=== PATIENT | male | born 1990 | race Caucasian/White ===

== ENCOUNTER 2025-03-17 16:04 | Emergency (ER) | payer MEDICAID ==
[~2025-03-17] VITALS: Ht 180.3 cm; Wt 77.0 kg
[~2025-03-17 16:04] MED LIST: GABAPENTIN100 MG PO
--- OUTSIDE RECORDS SUMMARY | 2025-03-17 16:11 | XMS ---
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 Nathalie has no Care Guidelines for this patient. Benjamin VISIT COUNT (12 MO.) 3 [facility] TOTAL 3 NOTE: Visits indicate total known visits. ED/UCC VISIT TRACKING (12 MO.) 03/17/2025 16:04 [facility] [place] TYPE: Emergency COMPLAINT: - RT ARM PAIN 12/25/2024 18:15 [facility] [place] TYPE: Emergency COMPLAINT: - EXTREMITY PAIN DIAGNOSES: - Allergy status to narcotic agent - Pain in arm, unspecified - Pain in left arm - Radiculopathy, cervical region 12/25/2024 17:08 [facility] [place] TYPE: Emergency COMPLAINT: - PAIN/WEAKNESS IN BOTH ARMS INPATIENT VISIT TRACKING (12 MO.) No inpatient visits to display in this time frame [email or web address]
[2025-03-17] MEDS ORDERED: NAPROSYN500 MG PO (17:02)
[2025-03-17 17:15] VITALS: BP 139/80
== END 2025-03-17 17:15 | disposition home or self-care (01) ==
LOC: ED 16:04
DX: M79.601 Pain in right arm (principal); Z88.5 Allergy status to narcotic agent; Z79.899 Other long term (current) drug therapy
CPT/HCPCS: 99283

== ENCOUNTER 2025-05-22 00:30 | Emergency (ER) | payer OTHER ==
[~2025-05-22] VITALS: Ht 180.3 cm; Wt 74.5 kg
[~2025-05-22 00:30] MED LIST changes: +NAPROSYN500 MG PO
--- OUTSIDE RECORDS SUMMARY | 2025-05-22 00:37 | XMS ---
PreManage Notification: CARLOS ARAUZ Security Sr. Manager Marketing Events No recent Security Events currently on file CRITERIA MET - Group Notification CARE PROVIDERS There are no care providers on record at this time. Nathalie has no Care Guidelines for this patient. Benjamin VISIT COUNT (12 MO.) 4 HANS Singh TOTAL 4 NOTE: Visits indicate total known visits. ED/C VISIT TRACKING (12 MO.) 05/22/2025 00:30 [facility] [place] TYPE: Emergency COMPLAINT: - SKIN PROBLEM 03/17/2025 16:04 [facility] [place] TYPE: Emergency COMPLAINT: - RT ARM PAIN DIAGNOSES: - Allergy status to narcotic agent - Other longterm (current) drug therapy - Pain in right arm 12/25/2024 18:15 [facility] [place] TYPE: Emergency COMPLAINT: - EXTREMITY PAIN DIAGNOSES: - Allergy status to narcotic agent - Pain in arm, unspecified - Pain in left arm - Radiculopathy, cervical region 12/25/2024 17:08 [facility] [place] TYPE: Emergency COMPLAINT: - PAIN/WEAKNESS IN BOTH ARMS INPATIENT VISIT TRACKING (12 MO.) No inpatient visits to display in this time frame [id number]
[2025-05-22] MEDS ORDERED: ACETAMINOPHEN 500 MG TAB PO ONE (02:15)
[2025-05-22 02:26] VITALS: BP 103/50
== END 2025-05-22 02:27 | disposition home or self-care (01) ==
LOC: ED 00:30
DX: S90.812A Abrasion, left foot, initial encounter (principal); S90.811A Abrasion, right foot, initial encounter; Z88.5 Allergy status to narcotic agent; X58.XXXA Exposure to other specified factors, initial encounter
CPT/HCPCS: 99282; A9270